=== PATIENT | female | born 1995 | race Caucasian/White ===

== ENCOUNTER 2016-11-08 03:58 | Emergency (ER) | payer MEDICAID, OTHER ==
[~2016-11-08] VITALS: Ht 160 cm; Wt 53.0 kg
[2016-11-08 04:02] VITALS: Ht 160 cm; Wt 53.0 kg
[2016-11-08 04:52] LABS: URINE BLOOD (Dip) POC 2+ (NEGATIVE)
[2016-11-08] MEDS ORDERED: CEPH-443 PO (05:19)
[2016-11-08] MEDS ORDERED: PHEN-537 PO (05:19)
--- NOTE | 2016-11-08 05:22 | ERA ---
ER Documentation Chief Complaint Date/Time DATE: 11/08/16 TIME: 05:20 Chief Complaint Pelvic pain with no dysuria HPI Patient is otherwise healthy 21-year-old female presenting for mild abdominal tenderness. Patient describes the pain worse when she urinates. Patient also describes hematuria. Patient denies fever, back pain, change in bowel habits, sexual activity, vaginal discharge, vaginal bleeding. Patient is on no medications and denies any medical history. There are no other conditions, social manifestations or complaints. ROS All systems reviewed and are negative except as per history of present illness. Medications Home Meds Active Scripts Phenazopyridine Hcl* (Pyridium*) 100 Mg Tab, 100 MG PO TID Y for URINARY PAIN, # 8 TAB Prov:MECHE BURGESS PA-C 11/08/16 Cephalexin* (Keflex*) 500 Mg Capsule, 500 MG PO QID for 5 Days, CAP Prov:MECHE BURGESS PA-C 11/08/16 Allergies Allergies: Coded Allergies: No Known Drug Allergies (Verified Allergy, 03/18/12) PMhx/Soc History of Surgery: No Anesthesia Reaction: No Hx Neurological Disorder: No Hx Respiratory Disorders: No Hx Cardiac Disorders: No Hx Psychiatric Problems: No Hx Miscellaneous Medical Probl: No Hx Alcohol Use: No Hx Substance Use: No Hx Tobacco Use: No Smoking Status: Never smoker Physical Exam Vitals Vital Signs Date Time Temp Pulse Resp B/P Pulse Ox O2 Delivery O2 Flow Rate FiO2 11/08/16 04:02 97.9 89 20 127/72 100 Physical Exam Const: Well-developed well-appearing 21-year-old female. Head: Atraumatic Eyes: Normal Conjunctiva ENT: Normal External Ears, Nose and Mouth. Neck: Full range of motion..~ No meningismus. Resp: Clear to auscultation bilaterally Cardio: Regular rate and rhythm, no murmurs Abd: Mild suprapubic tenderness. Soft, non tender, non distended. Normal bowel sounds Skin: No petechiae or rashes Back: No midline or flank tenderness. No CVA tenderness. Ext: No cyanosis, or edema Neur: Awake and alert Psych: Normal Mood and Affect Results 24 hrs Laboratory Tests Test 11/08/16 04:54 Bedside Urine pH (LAB) 6.5 Bedside Urine Protein (LAB) Negative Bedside Urine Glucose (UA) Negative Bedside Urine Ketones (LAB) Negative Bedside Urine Blood 2+ Bedside Urine Nitrite (LAB) Negative Bedside Urine Leukocyte Esterase (L Trace Procedures/MDM Patient was worked up for urinary tract infection. Patient received a urine dipstick that revealed 2+ hematuria with trace leukocyte esterase. Physical exam revealed suprapubic tenderness. test was negative. There is no adnexal tenderness on gross abdominal examination. The results are most consistent with a hemorrhagic cystitis urinary tract infection. At this time a very low suspicion for ovarian torsion, related conditions, or disorders of the GI tract. Departure Diagnosis: Primary Impression: Urinary tract infection Qualified Code: N30.01 - Acute cystitis with hematuria Condition: Stable Patient Instructions: Understanding Urinary Tract Infections (UTIs) Additional Instructions: Follow up with your PCP within the next 1-3 days for a more thorough evaluation and a possible referral to a specialist. Return the the emergency department immediately if symptoms worsen or change. If you have any questions regarding medications, ask your pharmacist or us before you leave. If any adverse reactions occur while taking your medications, discontinue the treatment and return to the emergency department immediately. Take your medications as directed, and complete the entire course of treatment. MECHE BURGESS PA-C November 08, 2016 05:22
== END 2016-11-08 05:25 | disposition home or self-care (01) ==
LOC: FTE 03:58
DX: N30.01 Acute cystitis with hematuria (principal)
CPT/HCPCS: 81003; Z7502; 99283

== ENCOUNTER 2017-04-01 11:38 | Emergency (ER) | payer OTHER ==
[~2017-04-01] VITALS: Ht 160 cm; Wt 51.5 kg
[~2017-04-01 11:38] MED LIST: CEPH-443 PO; PHEN-537 PO
[2017-04-01 11:51] VITALS: Ht 160 cm; Wt 51.5 kg
[2017-04-01] MEDS ORDERED: NAPR-688 PO (13:46)
[2017-04-01] MEDS ORDERED: AMOX1TAB10 PO (13:46)
[2017-04-01] MEDS ORDERED: OXYC-279 PO (13:47)
--- NOTE | 2017-04-01 13:56 | ERD ---
ER Documentation Chief Complaint Date/Time DATE: 04/01/17 TIME: 13:54 Chief Complaint throat pain since wednesday HPI 1-year-old female presents with sore throat since Wednesday. She has also had a headache, generalized malaise, and some difficulty swallowing. Denies any cough. States that she is otherwise healthy. ROS All systems reviewed and are negative except as per history of present illness. Medications Home Meds Active Scripts Oxycodone HCl/Acetaminophen (Percocet 5-325 mg Tablet) 1 Each Tablet, 1 EACH PO Q8, #10 TAB Prov:EDWINROBB DO 04/01/17 Amoxicillin/Potassium Clav (Amox-Clav 875-125 mg Tablet) 875-125 mg Tab, 1 TAB PO BID, #20 TAB Prov:EDWINROBB 04/01/17 Naproxen* (Naproxen*) 500 Mg Tablet, 500 MG PO BID Y for PAIN, #12 TAB Prov:EDWINROBB 04/01/17 Phenazopyridine Hcl* (Pyridium*) 100 Mg Tab, 100 MG PO TID Y for URINARY PAIN, # 8 TAB Prov:MECHE BURGESS PA-C 11/08/16 Cephalexin* (Keflex*) 500 Mg Capsule, 500 MG PO QID for 5 Days, CAP Prov:MECHE BURGESS PA-C 11/08/16 Allergies Allergies: Coded Allergies: No Known Drug Allergies (Verified Allergy, 03/18/12) PMhx/Soc Medical and Surgical Hx: pt denies Medical Hx, pt denies Surgical Hx History of Surgery: No Anesthesia Reaction: No Hx Neurological Disorder: No Hx Respiratory Disorders: No Hx Cardiac Disorders: No Hx Psychiatric Problems: No Hx Miscellaneous Medical Probl: No Hx Alcohol Use: No Hx Substance Use: No Hx Tobacco Use: No Smoking Status: Never smoker Physical Exam Vitals Vital Signs Date Time Temp Pulse Resp B/P Pulse Ox O2 Delivery O2 Flow Rate FiO2 04/01/17 11:51 99.2 118 19 108/66 98 Physical Exam Const: [] Yes, appears uncomfortable Head: Atraumatic Eyes: Normal Conjunctiva ENT: Normal External Ears, Nose and Mouth. Tympanic membranes within normal limits bilaterally, oropharynx with symmetrically enlarged erythematous tonsils with bilateral exudate. Neck: Full range of motion.. 1.5-2 cm left anterior cervical lymph node that is tender to palpation. Neur: Awake and alert Psych: Normal Mood and Affect Results 24 hrs Current Medications Medications (Trade) Dose Ordered Sig/Abhilash Route PRN Reason Start Time Stop Time Status Last Admin Dose Admin Morphine Sulfate (morphine) 5 mg ONCE ONCE IM 04/01/17 14:00 04/01/17 14:01 Procedures/MDM Strep pharyngitis the fourth out of 4 [facility] criteria. She was given 5 mg IM injection of morphine and she did have significant pain. She was swelling her own secretions. Discharge with naproxen as well as a few Percocet and Augmentin. Departure Diagnosis: Primary Impression: Strep pharyngitis Condition: Stable Patient Instructions: Pharyngitis, Strep (Presumed) Additional Instructions: Call your primary care doctor TOMORROW for an appointment during the next 2-3 days.See the doctor sooner or return here if your condition worsens before your appointment time. ROBB PINEDA DO Apr 01, 2017 13:56
[2017-04-01] MEDS ORDERED: morphine 10 MG INJ IM ONE (14:00)
[2017-04-01] MEDS ORDERED: ONDANSETRON (ODT) 4 MG TAB ODT STA (14:12)
[2017-04-01] MEDS ORDERED: OXYCODONE/ACETAMINOPHEN (5/325) TAB PO ONE (14:30)
== END 2017-04-01 14:35 | disposition home or self-care (01) ==
LOC: FTE 11:38
DX: J02.0 Streptococcal pharyngitis (principal)
CPT/HCPCS: Z7502; Z7610; 99284